=== PATIENT | male | born 1950 | race Asian ===

== ENCOUNTER 2020-12-10 09:27 | Inpatient (IN) | payer MEDICARE, OTHER ==
[~2020-12-10] VITALS: Ht 160 cm; Wt 59.8 kg
[2020-12-10] MEDS ORDERED: SODIUM CHLORIDE 0.9% 1,000 ML IV ONE (09:45)
[2020-12-10 10:58] LABS: Basophils # (auto) 0.1 10 ^3/uL (0-0.2); Basophils % (auto) 0.9 % (0.0-2.0); Eosinophils # (auto) 0 10 ^3/uL (0-0.8); Eosinophils % (auto) 0.4 % (0.0-7.0); Hematocrit 44.2 % (41.0-53.0); Hemoglobin 15.4 g/dL (13.5-17.5); Lymphocytes # (auto) 1.9 10 ^3/uL (0.4-5.4); Lymphocytes % (auto) 19.5 % (10.0-50.0); Mean Corpuscular Hemoglobin 31.9 pg (28.0-32.0); Mean Corpuscular Hgb Conc. 34.8 g/dL (32.0-36.0); Mean Corpuscular Volume 91.9 fL (80.0-100.0); Monocytes # (auto) 0.6 10 ^3/uL (0-1.3); Monocytes % (auto) 6.1 % (0.0-12.0); Neutrophils # (auto) 7.1 10 ^3/uL (1.6-8.6); Neutrophils % (auto) 73.1 % (37.0-80.0); Nucleated Red Blood Cells % 0.1 %; Red Blood Cells 4.81 10^6/uL (4.5-5.90); Red Cell Distribution Width 13.8 % (11.8-14.3); White Blood Cell 9.7 10^3/uL (4.4-10.8)
[2020-12-10] MEDS ORDERED: metroNIDAZOLE 500MG/100ML 100 ML IV ONE ×2 (12:30→16:00)
[2020-12-10] MEDS ORDERED: cefTRIAXone 1GM/50ML D5W 50 ML IV ONE (12:30)
[2020-12-10 12:37] LABS: Magnesium 2.2 mg/dL (1.6-2.6); Potassium 4.2 mmol/L (3.5-5.1)
[2020-12-10 12:46] LABS: Albumin 3.5 g/dL (3.4-5.0); BUN/Creatinine Ratio 21.7; Bilirubin, Total 0.4 mg/dL (0.2-1.0); Calcium 10.4 mg/dL (8.5-10.1); Total Protein 7.8 g/dL (6.4-8.2)
[2020-12-10] MEDS ORDERED: NITROGLYCERIN 0.4 MG SL TAB SL PRN ×2 (13:30→16:00)
[2020-12-10] MEDS ORDERED: MORPHINE SULFATE INJECTION 2 MG/ML SYRG IV PRN ×2 (13:30→16:00)
[2020-12-10] MEDS ORDERED: LACTATED RINGER'S 1,000 ML IV ONE (13:30)
[2020-12-10 14:22] LABS: INR 0.98 (0.9-1.15); Partial Thromboplastin Time 32.2 sec (23.0-31.2)
[2020-12-10] MEDS ORDERED: PANTOPRAZOLE 40 MG/10 ML VIAL INJ IV ONE (16:00)
[2020-12-10] MEDS ORDERED: ALUM & MAG HYDROX-SIMETH LIQ(MAALOX) 30 ML PO PRN (16:00)
[2020-12-10] MEDS ORDERED: METOCLOPRAMIDE HCL 5MG/ml INJ 2ml VIAL IV PRN (16:00)
[2020-12-10] MEDS ORDERED: MONTELUKAST SODIUM 10 MG TAB PO ONE (16:00)
[2020-12-10] MEDS ORDERED: ACETAMINOPHEN 325 MG TAB PO PRN (16:00)
[2020-12-10] MEDS ORDERED: DOCUSATE SOD 100 MG CAP PO PRN (16:00)
[2020-12-10] MEDS ORDERED: SUCRALFATE 1 GM/10 ML ORAL SUSP PO ONE (16:00)
[2020-12-10] MEDS ORDERED: PANCREATIC ENZYMES 4200 UNIT CAP PO ONE (16:00)
[2020-12-10] MEDS ORDERED: DORZOLAMIDE HCL 2% OPTH(EYE) SOL 10ML EACHEYE ONE (16:00)
[2020-12-10] MEDS ORDERED: MORPHINE SULFATE INJECTION 2 MG/ML SYRG IV ONE (16:15)
[2020-12-10] MEDS ORDERED: MORPHINE SULFATE INJECTION 2 MG/ML SYRG ONE (16:16)
[2020-12-10] MEDS: SODIUM CHLORIDE 0.9% 1,000 ML IV SCH (19:03)
[2020-12-10] MEDS: TAMSULOSIN HYDROCHLORIDE 0.4 MG CAP PO SCH (19:05)
[2020-12-10 20:15] LABS: Cholesterol 194 mg/dL (< 200); Triglycerides 118 mg/dL (< 150)
[2020-12-10 20:19] LABS: HDL Cholesterol 37 mg/dL (40-59); LDL Cholesterol 135 mg/dL (< 100)
[2020-12-10] MEDS: PANCREATIC ENZYMES 4200 UNIT CAP PO SCH (20:34)
[2020-12-10] MEDS: DORZOLAMIDE HCL 2% OPTH(EYE) SOL 10ML EACHEYE SCH (21:45)
[2020-12-10] MEDS: LATANOPROST 0.005 % OPTH(EYE) SOL 2.5ML EACHEYE SCH (21:45)
[2020-12-10] MEDS: SUCRALFATE 1 GM/10 ML ORAL SUSP PO SCH (21:46)
[2020-12-10] MEDS: metroNIDAZOLE 500MG/100ML 100 ML IV SCH (21:46)
[2020-12-10] MEDS: ATORVASTATIN 20 MG TAB PO SCH (21:46)
[2020-12-10 22:00] VITALS: BP 133/95
[2020-12-10] MEDS: MONTELUKAST SODIUM 10 MG TAB PO SCH (22:00)
[2020-12-10 23:10] LABS: Urine Bacteria FEW /hpf (None Seen); Urine Blood Negative /uL (Negative); Urine Hyaline Cast FEW /lpf (0 - 2); Urine Mucus FEW (None Seen); Urine Specific Gravity 1.015 (1.001-1.035); Urine Sperm PRESENT /hpf (None Seen); Urine WBC 5 /hpf (0 - 3)
[2020-12-10] MEDS: HYDROcodone-ACET 5/325MG TAB PO PRN (23:12)
[2020-12-10 23:24] LABS: Alcohol, Urine < 3.0 mg/dL (0-10); Barbiturate Scree,Urine NEGATIVE (NEGATIVE); Benzodiazephine Screen, Urine NEGATIVE (NEGATIVE); Cannabinoid Screen, Urine NEGATIVE (NEGATIVE); Cocaine Screen, Urine NEGATIVE (NEGATIVE); Phencyclidine Screen, Urine NEGATIVE (NEGATIVE)
[2020-12-10 23:37] LABS: Amphetamine Screen, Urine NEGATIVE (NEGATIVE); Opiate Scree,Urine NEGATIVE (NEGATIVE)
[2020-12-11 05:00] VITALS: BP 104/71
[2020-12-11] MEDS: metroNIDAZOLE 500MG/100ML 100 ML IV SCH ×3 (06:16→21:51)
[2020-12-11] MEDS: DORZOLAMIDE HCL 2% OPTH(EYE) SOL 10ML EACHEYE SCH ×3 (06:16→21:51)
[2020-12-11] MEDS: SUCRALFATE 1 GM/10 ML ORAL SUSP PO SCH ×4 (06:17→21:51)
[2020-12-11 07:49] LABS: Basophils # (auto) 0.1 10 ^3/uL (0-0.2); Basophils % (auto) 0.8 % (0.0-2.0); Eosinophils # (auto) 0.1 10 ^3/uL (0-0.8); Eosinophils % (auto) 0.8 % (0.0-7.0); Hemoglobin 12.6 g/dL (13.5-17.5); Lymphocytes # (auto) 1.7 10 ^3/uL (0.4-5.4); Lymphocytes % (auto) 17.9 % (10.0-50.0); Mean Corpuscular Hemoglobin 32.5 pg (28.0-32.0); Mean Corpuscular Hgb Conc. 35.1 g/dL (32.0-36.0); Mean Corpuscular Volume 92.6 fL (80.0-100.0); Monocytes # (auto) 0.6 10 ^3/uL (0-1.3); Monocytes % (auto) 6.3 % (0.0-12.0); Neutrophils # (auto) 7.1 10 ^3/uL (1.6-8.6); Neutrophils % (auto) 74.2 % (37.0-80.0); Red Blood Cells 3.89 10^6/uL (4.5-5.90); Red Cell Distribution Width 13.8 % (11.8-14.3); White Blood Cell 9.5 10^3/uL (4.4-10.8)
[2020-12-11] MEDS: PANCREATIC ENZYMES 4200 UNIT CAP PO SCH ×3 (07:55→17:57)
[2020-12-11 08:00] VITALS: BP 120/72
[2020-12-11] MEDS ORDERED: TRAM50TA2 PO (08:11)
[2020-12-11] MEDS ORDERED: LEVOTAB51 PO (08:11)
[2020-12-11] MEDS ORDERED: OMEP20TA PO (08:11)
[2020-12-11] MEDS ORDERED: TAMS0.4C36 PO (08:11)
[2020-12-11] MEDS ORDERED: IBAN1TAB3 PO (08:11)
[2020-12-11] MEDS ORDERED: FINA5TAB4 PO (08:11)
[2020-12-11] MEDS ORDERED: SERT50TA19 PO (08:11)
[2020-12-11] MEDS ORDERED: LOSA-39 PO (08:11)
[2020-12-11] MEDS ORDERED: MONT-8 PO (08:11)
[2020-12-11] MEDS ORDERED: ZOLP10TA6 PO (08:11)
[2020-12-11 08:12] LABS: INR 1.02 (0.9-1.15); Partial Thromboplastin Time 27.6 sec (23.0-31.2)
[2020-12-11 08:23] LABS: Albumin 2.9 g/dL (3.4-5.0); Anion Gap 8 (5-15); Blood Urea Nitrogen 33 mg/dL (7-18); Calcium 8.7 mg/dL (8.5-10.1); Carbon Dioxide 19 mmol/L (21-32); Chloride 116 mmol/L (98-107); Glucose 101 mg/dL (74-106); Potassium 3.8 mmol/L (3.5-5.1); Sodium 143 mmol/L (136-145)
[2020-12-11 08:29] LABS: Alanine Aminotransferase 16 U/L (16-61); Alkaline Phosphatase 62 U/L (45-117); Aspartate Aminotransferase 19 U/L (15-37); BUN/Creatinine Ratio 32.7; Bilirubin, Total 0.4 mg/dL (0.2-1.0); GFR African American 94 mL/min; GFR Non-African American 78 mL/min; Total Protein 6.3 g/dL (6.4-8.2)
[2020-12-11] MEDS: cefTRIAXone 1GM/50ML D5W 50 ML IV SCH (08:37)
[2020-12-11 09:00] VITALS: BP 120/72
[2020-12-11] MEDS ORDERED: CYCL0.05 EACHEYE (09:00)
[2020-12-11] MEDS ORDERED: BRIM0.159 OP (09:00)
[2020-12-11] MEDS ORDERED: DORZ2SOL18 EACHEYE (09:00)
[2020-12-11] MEDS: PANTOPRAZOLE 40 MG/10 ML VIAL INJ IV SCH (09:55)
[2020-12-11] MEDS: FINASTERIDE 5 MG TAB PO SCH (09:56)
[2020-12-11] MEDS: SERTRALINE HCL 50 MG TAB PO SCH (09:56)
[2020-12-11] MEDS: ENOXAPARIN SOD 40 MG/0.4 ML SYRINGE SC SCH (09:57)
[2020-12-11 13:05] VITALS: BP 119/73
[2020-12-11] MEDS: BRIMONIDINE 0.2% OPTH Soln 5ml EACHEYE SCH ×2 (14:00→21:51)
[2020-12-11 16:53] VITALS: BP 112/70
[2020-12-11] MEDS: SODIUM CHLORIDE 0.9% 1,000 ML IV SCH (17:56)
[2020-12-11] MEDS: TAMSULOSIN HYDROCHLORIDE 0.4 MG CAP PO SCH (17:56)
[2020-12-11] MEDS: HYDROcodone-ACET 5/325MG TAB PO PRN (19:38)
[2020-12-11] MEDS: ATORVASTATIN 20 MG TAB PO SCH (21:51)
[2020-12-11] MEDS: MONTELUKAST SODIUM 10 MG TAB PO SCH (21:51)
[2020-12-11] MEDS: LATANOPROST 0.005 % OPTH(EYE) SOL 2.5ML EACHEYE SCH (21:51)
[2020-12-11 22:00] VITALS: BP 106/56
[2020-12-12] MEDS: SODIUM CHLORIDE 0.9% 1,000 ML IV SCH ×2 (01:20→14:16)
[2020-12-12 05:00] VITALS: BP 108/74
[2020-12-12] MEDS: BRIMONIDINE 0.2% OPTH Soln 5ml EACHEYE SCH ×3 (06:21→22:23)
[2020-12-12] MEDS: DORZOLAMIDE HCL 2% OPTH(EYE) SOL 10ML EACHEYE SCH ×3 (06:21→22:23)
[2020-12-12] MEDS: metroNIDAZOLE 500MG/100ML 100 ML IV SCH ×3 (06:30→22:23)
[2020-12-12] MEDS: SUCRALFATE 1 GM/10 ML ORAL SUSP PO SCH ×4 (06:31→22:23)
[2020-12-12 06:56] LABS: Basophils # (auto) 0 10 ^3/uL (0-0.2); Basophils % (auto) 0.5 % (0.0-2.0); Eosinophils # (auto) 0.1 10 ^3/uL (0-0.8); Eosinophils % (auto) 0.9 % (0.0-7.0); Hematocrit 34.6 % (41.0-53.0); Hemoglobin 12.2 g/dL (13.5-17.5); Lymphocytes # (auto) 1.6 10 ^3/uL (0.4-5.4); Lymphocytes % (auto) 19.1 % (10.0-50.0); Mean Corpuscular Hemoglobin 32.5 pg (28.0-32.0); Mean Corpuscular Hgb Conc. 35.2 g/dL (32.0-36.0); Mean Corpuscular Volume 92.3 fL (80.0-100.0); Monocytes # (auto) 0.4 10 ^3/uL (0-1.3); Monocytes % (auto) 5.1 % (0.0-12.0); Neutrophils # (auto) 6.3 10 ^3/uL (1.6-8.6); Neutrophils % (auto) 74.4 % (37.0-80.0); Red Blood Cells 3.75 10^6/uL (4.5-5.90); Red Cell Distribution Width 13.8 % (11.8-14.3); White Blood Cell 8.5 10^3/uL (4.4-10.8)
[2020-12-12 07:11] LABS: Albumin 2.7 g/dL (3.4-5.0); Calcium 8.3 mg/dL (8.5-10.1); Potassium 3.2 mmol/L (3.5-5.1)
[2020-12-12 07:14] LABS: Bilirubin, Total 0.4 mg/dL (0.2-1.0); Total Protein 5.8 g/dL (6.4-8.2)
[2020-12-12 08:52] VITALS: BP 126/74
[2020-12-12] MEDS: FINASTERIDE 5 MG TAB PO SCH (09:25)
[2020-12-12] MEDS: PANCREATIC ENZYMES 4200 UNIT CAP PO SCH ×3 (09:25→17:57)
[2020-12-12] MEDS: PANTOPRAZOLE 40 MG/10 ML VIAL INJ IV SCH (09:25)
[2020-12-12] MEDS: cefTRIAXone 1GM/50ML D5W 50 ML IV SCH (09:25)
[2020-12-12] MEDS: SERTRALINE HCL 50 MG TAB PO SCH (09:25)
[2020-12-12] MEDS: ENOXAPARIN SOD 40 MG/0.4 ML SYRINGE SC SCH (09:26)
[2020-12-12] MEDS ORDERED: SODIUM CHL 0.9% IV ONE (10:00)
[2020-12-12] MEDS ORDERED: SODIUM PHOSPHATES IV ONE (10:00)
[2020-12-12] MEDS ORDERED: POTASSIUM EFFERVESENT TAB 25 MEQ PO ONE (11:00)
[2020-12-12 13:06] VITALS: BP 139/71
[2020-12-12 16:51] VITALS: BP 124/69
[2020-12-12] MEDS: TAMSULOSIN HYDROCHLORIDE 0.4 MG CAP PO SCH (17:57)
[2020-12-12 22:00] VITALS: BP 145/80
[2020-12-12] MEDS ORDERED: TEMAZEPAM 15 MG CAP PO ONE (22:00)
[2020-12-12] MEDS: ATORVASTATIN 20 MG TAB PO SCH (22:23)
[2020-12-12] MEDS: LATANOPROST 0.005 % OPTH(EYE) SOL 2.5ML EACHEYE SCH (22:24)
[2020-12-12] MEDS: MONTELUKAST SODIUM 10 MG TAB PO SCH (22:50)
[2020-12-13] VITALS (7 sets, daily range): BP systolic 123–150; BP diastolic 68–87
[2020-12-13] MEDS: BRIMONIDINE 0.2% OPTH Soln 5ml EACHEYE SCH ×3 (06:12→21:43)
[2020-12-13] MEDS: DORZOLAMIDE HCL 2% OPTH(EYE) SOL 10ML EACHEYE SCH ×3 (06:12→21:43)
[2020-12-13] MEDS: metroNIDAZOLE 500MG/100ML 100 ML IV SCH ×3 (06:13→21:43)
[2020-12-13] MEDS: SUCRALFATE 1 GM/10 ML ORAL SUSP PO SCH ×4 (06:36→21:42)
[2020-12-13 07:01] LABS: Basophils # (auto) 0 10 ^3/uL (0-0.2); Basophils % (auto) 0.9 % (0.0-2.0); Eosinophils # (auto) 0.1 10 ^3/uL (0-0.8); Eosinophils % (auto) 1.9 % (0.0-7.0); Hematocrit 36.9 % (41.0-53.0); Hemoglobin 12.9 g/dL (13.5-17.5); Lymphocytes # (auto) 1.9 10 ^3/uL (0.4-5.4); Lymphocytes % (auto) 36.6 % (10.0-50.0); Mean Corpuscular Hemoglobin 32.4 pg (28.0-32.0); Mean Corpuscular Hgb Conc. 34.8 g/dL (32.0-36.0); Mean Corpuscular Volume 93.1 fL (80.0-100.0); Monocytes # (auto) 0.3 10 ^3/uL (0-1.3); Monocytes % (auto) 6.4 % (0.0-12.0); Neutrophils # (auto) 2.8 10 ^3/uL (1.6-8.6); Neutrophils % (auto) 54.2 % (37.0-80.0); Nucleated Red Blood Cells % 0.1 %; Red Blood Cells 3.97 10^6/uL (4.5-5.90); Red Cell Distribution Width 13.6 % (11.8-14.3); White Blood Cell 5.1 10^3/uL (4.4-10.8)
[2020-12-13 07:22] LABS: Potassium 3.3 mmol/L (3.5-5.1)
[2020-12-13 07:24] LABS: BUN/Creatinine Ratio 15.3
[2020-12-13] MEDS: cefTRIAXone 1GM/50ML D5W 50 ML IV SCH (07:54)
[2020-12-13] MEDS: PANCREATIC ENZYMES 4200 UNIT CAP PO SCH ×3 (07:54→18:10)
[2020-12-13] MEDS: FINASTERIDE 5 MG TAB PO SCH (09:32)
[2020-12-13] MEDS: SERTRALINE HCL 50 MG TAB PO SCH (09:32)
[2020-12-13] MEDS: PANTOPRAZOLE 40 MG/10 ML VIAL INJ IV SCH (09:32)
[2020-12-13] MEDS: ENOXAPARIN SOD 40 MG/0.4 ML SYRINGE SC SCH (09:32)
[2020-12-13] MEDS: SODIUM CHLORIDE 0.9% 1,000 ML IV SCH (12:00)
[2020-12-13] MEDS ORDERED: POTASSIUM CHL 20 Meq TABLET PO ONE (16:15)
[2020-12-13] MEDS: TAMSULOSIN HYDROCHLORIDE 0.4 MG CAP PO SCH (18:11)
[2020-12-13] MEDS ORDERED: ALBUTEROL SULF 2.5 MG/0.5ML(0.5%) NEB SOLN NEB PRN (19:30)
[2020-12-13] MEDS: LATANOPROST 0.005 % OPTH(EYE) SOL 2.5ML EACHEYE SCH (21:43)
[2020-12-13] MEDS: ATORVASTATIN 20 MG TAB PO SCH (21:43)
[2020-12-13] MEDS: MONTELUKAST SODIUM 10 MG TAB PO SCH (21:45)
[2020-12-13] MEDS: LORazepam 0.5 MG TAB PO PRN (22:15)
[2020-12-14 05:00] VITALS: BP 141/84
[2020-12-14] MEDS: SODIUM CHLORIDE 0.9% 1,000 ML IV SCH (05:20)
[2020-12-14] MEDS: BRIMONIDINE 0.2% OPTH Soln 5ml EACHEYE SCH ×3 (06:07→22:35)
[2020-12-14] MEDS: metroNIDAZOLE 500MG/100ML 100 ML IV SCH ×3 (06:07→22:35)
[2020-12-14] MEDS: DORZOLAMIDE HCL 2% OPTH(EYE) SOL 10ML EACHEYE SCH ×3 (06:08→22:34)
[2020-12-14] MEDS: SUCRALFATE 1 GM/10 ML ORAL SUSP PO SCH ×4 (07:00→22:36)
[2020-12-14 07:27] LABS: Potassium 3.2 mmol/L (3.5-5.1)
[2020-12-14 07:34] LABS: BUN/Creatinine Ratio 13.4; Calcium 7.5 mg/dL (8.5-10.1); Magnesium 1.5 mg/dL (1.6-2.6)
[2020-12-14] MEDS: PANCREATIC ENZYMES 4200 UNIT CAP PO SCH ×3 (07:50→17:38)
[2020-12-14 09:00] VITALS: BP 146/81
[2020-12-14] MEDS: PANTOPRAZOLE 40 MG/10 ML VIAL INJ IV SCH (09:30)
[2020-12-14] MEDS: SERTRALINE HCL 50 MG TAB PO SCH (09:30)
[2020-12-14] MEDS: FINASTERIDE 5 MG TAB PO SCH (09:30)
[2020-12-14] MEDS: cefTRIAXone 1GM/50ML D5W 50 ML IV SCH (09:30)
[2020-12-14] MEDS: ENOXAPARIN SOD 40 MG/0.4 ML SYRINGE SC SCH (09:30)
[2020-12-14] MEDS ORDERED: POTASSIUM PHOSPHATE 22 MEQ in SODIUM CHL 0.9% 100 ML IV ONE (10:45)
[2020-12-14] MEDS ORDERED: D5W/ SOD CHL 0.9%/KCL 20MEQ 1,000 ML IV SCH (10:45)
[2020-12-14] MEDS: D5W/SOD CHL 0.45%/KCL 20MEQ 1,000 ML IV SCH (11:19)
[2020-12-14] MEDS: MAGNESIUM SULFATE 1GM/100ML 100 ML IV SCH ×3 (11:19→14:37)
[2020-12-14] MEDS: MORPHINE SULFATE INJECTION 2 MG/ML SYRG IV PRN (11:20)
[2020-12-14 13:00] VITALS: BP 137/76
[2020-12-14 17:00] VITALS: BP 149/75
[2020-12-14] MEDS: TAMSULOSIN HYDROCHLORIDE 0.4 MG CAP PO SCH (17:18)
[2020-12-14] MEDS ORDERED: ceFAZolin 1GM/50ML 50 ML IV ONE (18:57)
[2020-12-14] MEDS ORDERED: BUPIVACAINE 0.25% INJ 50ML VIAL ONE (19:09)
[2020-12-14] MEDS ORDERED: LIDOCAINE 1% HCL (LOCAL ANESTH.) INJ 20ML MDV ONE (19:09)
[2020-12-14] MEDS ORDERED: fentaNYL CITRATE 100 MCG/2 ML VL ONE (19:15)
[2020-12-14] MEDS ORDERED: MIDAZOLAM HCL 2MG/2ML 2ml VIAL (1mg/ml) ONE (19:15)
[2020-12-14] MEDS ORDERED: SUCCINYLCHOLINE CHLORIDE 20 MG/ML 10ML VIAL IV ONE (19:16)
[2020-12-14] MEDS ORDERED: PROPOFOL 10 MG/ML 20 ML IV ONE (19:17)
[2020-12-14] MEDS ORDERED: LIDOCAINE 2% (LOCAL ANESTH.) PF 5ml SDV ONE (19:18)
[2020-12-14] MEDS ORDERED: ONDANSETRON HCL 4 MG/2 ML VIAL ONE (19:18)
[2020-12-14] MEDS ORDERED: GLYCOPYRROLATE 0.2 MG/ML 1ML VIAL IV ONE (19:25)
[2020-12-14] MEDS ORDERED: NEOSTIGMINE 1 MG/ML INJ (10mg/10ML VIAL) IV ONE (19:25)
[2020-12-14] MEDS ORDERED: ePHEDrine SULFATE 50 MG/ML AMP ONE (20:08)
[2020-12-14] MEDS ORDERED: HYDROmorphone HCL 2 MG/ML VL ONE (21:27)
[2020-12-14] MEDS ORDERED: HYDROmorphone HCL 2 MG/ML VL IV PRN (21:30)
[2020-12-14] MEDS ORDERED: ONDANSETRON HCL 4 MG/2 ML VIAL IV PRN (21:30)
[2020-12-14] MEDS: HYDROmorphone HCL 2 MG/ML VL IV PRN ×2 (21:50→22:06)
[2020-12-14 22:00] VITALS: BP 100/66
[2020-12-14] MEDS: LATANOPROST 0.005 % OPTH(EYE) SOL 2.5ML EACHEYE SCH (22:35)
[2020-12-14] MEDS: MONTELUKAST SODIUM 10 MG TAB PO SCH (22:36)
[2020-12-14] MEDS: ATORVASTATIN 20 MG TAB PO SCH (22:36)
[2020-12-15] MEDS: D5W/SOD CHL 0.45%/KCL 20MEQ 1,000 ML IV SCH ×2 (00:35→13:48)
[2020-12-15] MEDS: MORPHINE SULFATE INJECTION 2 MG/ML SYRG IV PRN ×4 (01:21→19:38)
[2020-12-15 05:33] VITALS: BP 145/87
[2020-12-15] MEDS: metroNIDAZOLE 500MG/100ML 100 ML IV SCH ×3 (06:19→21:28)
[2020-12-15] MEDS: BRIMONIDINE 0.2% OPTH Soln 5ml EACHEYE SCH ×3 (06:19→21:33)
[2020-12-15] MEDS: SUCRALFATE 1 GM/10 ML ORAL SUSP PO SCH ×4 (06:19→21:28)
[2020-12-15] MEDS: DORZOLAMIDE HCL 2% OPTH(EYE) SOL 10ML EACHEYE SCH ×3 (06:19→21:33)
[2020-12-15 08:43] VITALS: BP 120/70
[2020-12-15] MEDS: PANCREATIC ENZYMES 4200 UNIT CAP PO SCH ×3 (09:06→19:19)
[2020-12-15] MEDS: FINASTERIDE 5 MG TAB PO SCH (09:07)
[2020-12-15] MEDS: SERTRALINE HCL 50 MG TAB PO SCH (09:08)
[2020-12-15] MEDS: ENOXAPARIN SOD 40 MG/0.4 ML SYRINGE SC SCH (09:09)
[2020-12-15] MEDS: PANTOPRAZOLE 40 MG/10 ML VIAL INJ IV SCH (09:10)
[2020-12-15] MEDS: cefTRIAXone 1GM/50ML D5W 50 ML IV SCH (09:10)
[2020-12-15 10:19] LABS: Basophils # (auto) 0 10 ^3/uL (0-0.2); Basophils % (auto) 0.3 % (0.0-2.0); Eosinophils # (auto) 0 10 ^3/uL (0-0.8); Eosinophils % (auto) 0.3 % (0.0-7.0); Hematocrit 38.4 % (41.0-53.0); Hemoglobin 13.3 g/dL (13.5-17.5); Lymphocytes # (auto) 1.6 10 ^3/uL (0.4-5.4); Mean Corpuscular Hemoglobin 32.1 pg (28.0-32.0); Mean Corpuscular Hgb Conc. 34.5 g/dL (32.0-36.0); Mean Corpuscular Volume 92.9 fL (80.0-100.0); Monocytes # (auto) 0.5 10 ^3/uL (0-1.3); Monocytes % (auto) 3.5 % (0.0-12.0); Neutrophils # (auto) 10.9 10 ^3/uL (1.6-8.6); Neutrophils % (auto) 83.9 % (37.0-80.0); Red Blood Cells 4.13 10^6/uL (4.5-5.90); Red Cell Distribution Width 14.1 % (11.8-14.3)
[2020-12-15 10:38] LABS: Potassium 3.4 mmol/L (3.5-5.1)
[2020-12-15 10:51] LABS: Albumin 3.1 g/dL (3.4-5.0); BUN/Creatinine Ratio 15.1; Bilirubin, Total 0.6 mg/dL (0.2-1.0); Calcium 7.7 mg/dL (8.5-10.1); Total Protein 6.3 g/dL (6.4-8.2)
[2020-12-15 13:00] VITALS: BP 147/79
[2020-12-15] MEDS ORDERED: POTASSIUM PHOSPHATE 44 MEQ in D5W 5% 250 ML IV ONE (14:45)
[2020-12-15 17:00] VITALS: BP 148/79
[2020-12-15] MEDS: TAMSULOSIN HYDROCHLORIDE 0.4 MG CAP PO SCH (19:19)
[2020-12-15] MEDS: MONTELUKAST SODIUM 10 MG TAB PO SCH (21:28)
[2020-12-15] MEDS: ATORVASTATIN 20 MG TAB PO SCH (21:28)
[2020-12-15] MEDS: LATANOPROST 0.005 % OPTH(EYE) SOL 2.5ML EACHEYE SCH (21:33)
[2020-12-15 22:00] VITALS: BP 161/76
[2020-12-15] MEDS: LORazepam 0.5 MG TAB PO PRN (22:15)
[2020-12-16] MEDS: D5W/SOD CHL 0.45%/KCL 20MEQ 1,000 ML IV SCH ×2 (02:54→16:35)
[2020-12-16 05:00] VITALS: BP 150/78
[2020-12-16] MEDS: metroNIDAZOLE 500MG/100ML 100 ML IV SCH ×2 (05:57→14:00)
[2020-12-16] MEDS: BRIMONIDINE 0.2% OPTH Soln 5ml EACHEYE SCH ×2 (05:57→14:26)
[2020-12-16] MEDS: DORZOLAMIDE HCL 2% OPTH(EYE) SOL 10ML EACHEYE SCH ×2 (05:57→14:26)
[2020-12-16 06:02] LABS: Basophils # (auto) 0.1 10 ^3/uL (0-0.2); Basophils % (auto) 0.7 % (0.0-2.0); Eosinophils # (auto) 0.1 10 ^3/uL (0-0.8); Eosinophils % (auto) 1.5 % (0.0-7.0); Hemoglobin 12.3 g/dL (13.5-17.5); Lymphocytes # (auto) 1.7 10 ^3/uL (0.4-5.4); Lymphocytes % (auto) 17.4 % (10.0-50.0); Mean Corpuscular Hemoglobin 33.1 pg (28.0-32.0); Mean Corpuscular Hgb Conc. 36.1 g/dL (32.0-36.0); Mean Corpuscular Volume 91.9 fL (80.0-100.0); Monocytes # (auto) 0.5 10 ^3/uL (0-1.3); Monocytes % (auto) 4.9 % (0.0-12.0); Neutrophils # (auto) 7.3 10 ^3/uL (1.6-8.6); Neutrophils % (auto) 75.5 % (37.0-80.0); Nucleated Red Blood Cells % 0.1 %; Red Cell Distribution Width 13.9 % (11.8-14.3); White Blood Cell 9.6 10^3/uL (4.4-10.8)
[2020-12-16 06:35] LABS: Albumin 2.5 g/dL (3.4-5.0); BUN/Creatinine Ratio 13.8; Calcium 7.2 mg/dL (8.5-10.1); Magnesium 1.6 mg/dL (1.6-2.6); Potassium 3.3 mmol/L (3.5-5.1)
[2020-12-16 06:38] LABS: Bilirubin, Total 0.6 mg/dL (0.2-1.0); Phosphorus 1.5 mg/dL (2.5-4.90); Total Protein 5.4 g/dL (6.4-8.2)
[2020-12-16] MEDS: SUCRALFATE 1 GM/10 ML ORAL SUSP PO SCH ×2 (06:45→11:45)
[2020-12-16] MEDS: MAGNESIUM SULFATE 1GM/100ML 100 ML IV SCH ×3 (08:00→10:24)
[2020-12-16] MEDS: PANCREATIC ENZYMES 4200 UNIT CAP PO SCH ×2 (08:07→11:46)
[2020-12-16 09:00] VITALS: BP 153/100
[2020-12-16] MEDS ORDERED: diphenhdrAMINE HCL 50 MG/1 ML VL ONE (09:10)
[2020-12-16] MEDS ORDERED: SODIUM CHLORIDE LOCK 10 ML ONE (09:10)
[2020-12-16] MEDS ORDERED: MIDAZOLAM HCL 5 MG/ML-1ML VIAL ONE (09:10)
[2020-12-16] MEDS ORDERED: LIDOCAINE VISCOUS 2% 15ML UD ONE (09:10)
[2020-12-16] MEDS ORDERED: fentaNYL CITRATE 100 MCG/2 ML VL ONE (09:11)
[2020-12-16] MEDS: FINASTERIDE 5 MG TAB PO SCH (09:13)
[2020-12-16] MEDS: PANTOPRAZOLE 40 MG/10 ML VIAL INJ IV SCH (09:13)
[2020-12-16] MEDS: ENOXAPARIN SOD 40 MG/0.4 ML SYRINGE SC SCH (09:14)
[2020-12-16] MEDS: SERTRALINE HCL 50 MG TAB PO SCH (09:16)
[2020-12-16] MEDS ORDERED: POTASSIUM PHOSPHATE 26.4 MEQ in SODIUM CHL 0.9% 100 ML IV ONE (11:00)
[2020-12-16] MEDS: cefTRIAXone 1GM/50ML D5W 50 ML IV SCH (11:32)
[2020-12-16 13:00] VITALS: BP 142/86
[2020-12-16 13:38] VITALS: BP 142/86
== END 2020-12-16 17:00 | disposition home or self-care (01) | DRG 417 ==
LOC: ER 09:27 → TELE 13:18 → TELE-WESTW 18:05
PROVIDERS: ADMIT Hospitalist; ATTEND Internal Medicine
PROC: 0FT44ZZ Resection of Gallbladder, Percutaneous Endoscopic Approach (ICD-10-PCS; principal; 2020-12-14 19:35)
DX: K81.2 Acute cholecystitis with chronic cholecystitis (principal); N17.0 Acute kidney failure with tubular necrosis; E44.0 Moderate protein-calorie malnutrition; M48.54XA Collapsed vertebra, not elsewhere classified, thoracic region, initial encounter for fracture; K21.9 Gastro-esophageal reflux disease without esophagitis; K86.89 Other specified diseases of pancreas; E86.0 Dehydration; E78.2 Mixed hyperlipidemia; B35.1 Tinea unguium; D63.8 Anemia in other chronic diseases classified elsewhere; E87.6 Hypokalemia; J44.9 Chronic obstructive pulmonary disease, unspecified; Z20.822 Contact with and (suspected) exposure to COVID-19; G89.4 Chronic pain syndrome; K29.70 Gastritis, unspecified, without bleeding; F32.9 Major depressive disorder, single episode, unspecified; H40.10X0 Unspecified open-angle glaucoma, stage unspecified; M19.90 Unspecified osteoarthritis, unspecified site; N40.0 Benign prostatic hyperplasia without lower urinary tract symptoms; N18.32 Chronic kidney disease, stage 3b; E83.52 Hypercalcemia; I95.9 Hypotension, unspecified; E83.39 Other disorders of phosphorus metabolism; I12.9 Hypertensive chronic kidney disease with stage 1 through stage 4 chronic kidney disease, or unspecified chronic kidney disease; M81.0 Age-related osteoporosis without current pathological fracture; Z68.24 Body mass index [BMI] 24.0-24.9, adult; Z82.49 Family history of ischemic heart disease and other diseases of the circulatory system
CPT/HCPCS: 36415; 36600; 74176; 76705; 78226; 80048; 80053; 80061; 80307; 81001; 82150; 82306; 82805; 83036; 83605; 83690; 83735; 83880; 83970; 84100; 84443; 84484; 85025; 85049; 85610; 85730; 86850; 86900; 86901; 87040; 87086; 87426; 96361; 96365; 96368; 96375; C9113; G0378; J0330; J0690; J0696; J2001; J2250; J2405; J2704; J3490; J7060